=== PATIENT | male | born 1985 | race Caucasian/White ===

== ENCOUNTER 2019-03-06 13:08 | Emergency (ER) | payer OTHER ==
[~2019-03-06] VITALS: Ht 182.9 cm; Wt 101.2 kg
[2019-03-06 13:14] VITALS: BP 149/77
--- NOTE | 2019-03-06 13:18 | NUR ---
PT AMBULATED TO BED 11 WITH STEADY GAIT.
--- NOTE | 2019-03-06 13:21 | NUR ---
34/M TO ED WITH C/O THROAT PAIN. PT SEEN IN URGENT CARE AND WAS TOLD TO COME TO ED FOR STRONGER PAIN MEDICATION. MILD REDNESS NOTED TO THROAT. NO OBVIOUS DISTRESS NOTED. IN BED FOR MSE.
[2019-03-06] MEDS ORDERED: AMPICILLIN/SULBACTAM 3 GM in NACL 0.9% 100 ML IV ONE (14:30)
[2019-03-06] MEDS ORDERED: DEXAMETHASONE 10 MG/ML VIAL IVP ONE (14:30)
[2019-03-06] MEDS ORDERED: ONDANSETRON 4 MG/2 ML VIAL IVP ONE (14:30)
[2019-03-06] MEDS ORDERED: MORPHINE SULFATE 4 MG/ML SYR IVP ONE (14:30)
[2019-03-06] MEDS ORDERED: AMPICILLIN/SULBACTAM 3 GM VIAL ONE (14:42)
[2019-03-06] MEDS ORDERED: NACL 0.9% 1,000 ML IV ONE (14:50)
[2019-03-06 16:16] VITALS: BP 135/68
--- NOTE | 2019-03-06 16:16 | NUR ---
Patient discharged with v/s stable. Written and verbal after care instructions given and explained. Patient alert, oriented and verbalized understanding of instructions. Ambulatory with steady gait. All questions addressed prior to discharge. ID band removed. Patient advised to follow up with PMD. Rx of IBUPROFEN,NORCO,AUGMENTIN given. Patient educated on indication of medication including possible reaction and side effects. Opportunity to ask questions provided and answered.
== END 2019-03-06 16:16 | disposition home or self-care (01) ==
LOC: MED 13:08
DX: J03.90 Acute tonsillitis, unspecified (principal)
CPT/HCPCS: 87081; 96365; 96375; 99283; J0295; J1100; J2270; J2405; J7030